=== PATIENT | female | born 1980 | race Caucasian/White ===

== ENCOUNTER 2024-07-27 16:20 | Emergency (ER) | payer OTHER, MEDICAID ==
[~2024-07-27] VITALS: Ht 162.6 cm; Wt 84.0 kg
[2024-07-27 16:32] VITALS: O2SAT 96
[2024-07-27 16:53] LABS: BASOPHILS % 0.5 % (0.0-2.0); EOSINOPHILS % 0.1 % (0.0-5.0); HEMOGLOBIN. 12.2 g/dL (12.0-16.0); LYMPHOCYTES % 20.8 % (20.0-50.0); MEAN CORPUSCULAR HEMOGLOBIN 19.8 pg (28.0-32.0); MEAN CORPUSCULAR HGB CONC 31.4 g/dL (31.0-37.0); MEAN CORPUSCULAR VOLUME 63.2 fL (81.0-99.0); MEAN PLATELET VOLUME 10.1 fl (7.4-10.4); MONOCYTES % 4.1 % (2.0-8.0); NEUTROPHILS % 74.5 % (40.0-76.0); PLATELET 245 x1000/uL (130-400); RED BLOOD CELL COUNT 6.17 mill/uL (4.2-5.4); RED CELL DISTRIBUTION WIDTH 14.9 % (11.6-14.6); WHITE BLOOD COUNT 14.1 x1000/uL (4.5-11.0)
[2024-07-27 16:54] LABS: ADD RBC MORPHOLOGY YES; DIFFERENTIAL COMMENT 1
[2024-07-27 16:56] LABS: CHLORIDE 106 mEq/L (98-107); POTASSIUM 3.7 mEq/L (3.5-5.1); SODIUM 137 mEq/L (136-145)
[2024-07-27 16:57] LABS: CALCIUM 9.9 mg/dL (8.7-10.4); CARBON DIOXIDE 25 mEq/L (21-32)
[2024-07-27 17:02] LABS: CREATININE 0.6 mg/dL (0.6-1.0); GLUCOSE 101 mg/dL (70-105); UREA NITROGEN BLOOD 8 mg/dL (9-23)
[2024-07-27 17:03] LABS: ETHANOL BLOOD < 10 mg/dL (<10)
[2024-07-27 17:04] LABS: ACETAMINOPHEN < 2 ug/mL (10-30)
[2024-07-27 17:14] LABS: HCG SCREEN NEGATIVE
[2024-07-27 17:28] LABS: HYPOCHROMASIA 2+; MICROCYTOSIS 3+; PLATELET ESTIMATE NORMAL
[2024-07-27 17:29] LABS: ANISOCYTOSIS 1+
[2024-07-27 21:13] LABS: *AMPHETAMINES SCREEN URINE NEGATIVE (NEGATIVE); *BARBITURATES SCREEN URINE NEGATIVE (NEGATIVE); *BENZODIAZEPINES SCREEN URINE NEGATIVE (NEGATIVE); *COCAINE SCREEN URINE NEGATIVE (NEGATIVE); METHADONE URINE SCREEN NEGATIVE (NEGATIVE); OPIATES URINE SCREEN NEGATIVE (NEGATIVE); PHENCYCLIDINE URINE SCREEN NEGATIVE (NEGATIVE)
[2024-07-27 21:14] LABS: CANNABINOID URINE SCREEN NEGATIVE (NEGATIVE); ECSTASY MDMA SCREEN URINE NEGATIVE (NEGATIVE)
[2024-07-28] MEDS: LORAZEPAM 1MG TABLET PO ONE ×2 (00:38→22:01)
[2024-07-28] MEDS: LORAZEPAM 1MG TABLET PO NR (12:48)
[2024-07-29] MEDS ORDERED: LORAZEPAM 1MG TABLET PO ONE (13:45)
[2024-07-29] MEDS: LORAZEPAM 1MG TABLET PO NR (16:18)
[2024-07-29] MEDS: LORAZEPAM 1MG TABLET PO ONE (22:28)
[2024-07-30] MEDS ORDERED: VENL75CA4 MT (12:26)
[2024-07-30] MEDS ORDERED: OLAN20TA79 MT (12:26)
[2024-07-30 14:12] VITALS: BP 130/76; PULSE 71; RESP 14; TEMP 36.89184; O2SAT 98
== END 2024-07-30 13:45 | disposition home or self-care (01) ==
LOC: ER 16:20
DX: R45.851 Suicidal ideations (principal); Z20.822 Contact with and (suspected) exposure to COVID-19; Z98.890 Other specified postprocedural states
CPT/HCPCS: 36415; 80048; 80305; 80307; 80320; 80329; 81025; 84703; 85025; 87426; 99285; G0480